=== PATIENT | male | born 1980 | race Caucasian/White ===

== ENCOUNTER 2022-03-07 14:42 | Emergency (ER) | payer OTHER, SELFPAY ==
[2022-03-07 14:54] VITALS: BP 141/84; PULSE 93; RESP 16; TEMP 36.6; O2SAT 99
--- NOTE | 2022-03-07 15:02 | ED.GENADULT ---
HPI - General Adult General Chief complaint: Ear Stated complaint: Right eye and head pain Time Seen by Provider: 03/07/22 15:02 Source: patient Mode of arrival: ambulatory Limitations: no limitations History of Present Illness HPI narrative: 42 y/o male presented for c/o right facial pain since last night. Pain to right maxillary sinus, right ear and mandaeism. Endorses sinus congestion and pressure for over one week, but pain worsened last night. Taking tylenol and scheduled meloxicam without relief. Also tried ear pain relief drops. Denies dental issues. Denies tinnitus, dizziness, nausea, vomiting, fever/chills. NKDA. Related Data Home Medications Medication Instructions Recorded Confirmed amitriptyline 25 mg PO DIRECTED 03/07/22 03/07/22 atorvastatin 40 mg PO DIRECTED 03/07/22 03/07/22 cholecalciferol (vitamin D3) 1,250 mcg PO DAILY 03/07/22 03/07/22 empagliflozin [Jardiance] 25 mg PO DAILY 03/07/22 03/07/22 fenofibrate 160 mg PO DAILY 03/07/22 03/07/22 glipizide 10 mg PO DAILY 03/07/22 03/07/22 linagliptin [Tradjenta] 5 mg PO DIRECTED 03/07/22 03/07/22 lisinopril 20 mg PO DAILY 03/07/22 03/07/22 meloxicam 15 mg PO DIRECTED 03/07/22 03/07/22 semaglutide [Ozempic] 0.25 mg SUBCUT DIRECTED 03/07/22 03/07/22 Allergies Allergy/AdvReac Type Severity Reaction Status Date / Time No Known Allergies Allergy Verified 03/07/22 15:06 Review of Systems Review of Systems: CONSTITUTIONAL: Denies body aches, fever, chills ENT: reports rhinorrhea, congestion, sinus pain CARDIOVASCULAR: Denies chest pain, palpitations RESPIRATORY: Denies cough or dyspnea. SKIN: Denies rash, itching, or wounds. MUSCULOSKELETAL: Denies myalgia. NEUROLOGIC: Denies headache, numbness, tingling, or weakness. PMFSH Comments At time of signature, I have reviewed and agree with nursing past medical, surgical, social and family history unless otherwise noted. Please see nursing chart for further information. There is no relevant family history pertinent to the presenting complaint Exam Narrative: GENERAL: Appears in pain; no acute distress. HEAD: Normocephalic, atraumatic. No facial swelling EYES: EOMI. No redness or drainage. Conjunctivae normal. ENT: Right maxillary sinus tender with light palpation, no facial edema or erythema; Mucous membranes pink and moist. Left TM normal; right canal and TM erythematous with mild swelling, no purulence. Throat normal. Uvula midline. no gum swelling or dental caries noted on exam NECK: Normal AROM. Supple. No lymphadenopathy. CHEST: No respiratory distress. Clear to auscultation. HEART: Regular rate and rhythm. No murmur appreciated. ABDOMEN: Soft, nontender, nondistended, normal active bowel sounds. SKIN: Warm, dry, no rash. Normal skin turgor. NEURO: No focal deficits. Alert and oriented x3. Gait steady. Course Course Emergency Course: Patient is aware of diagnosis, understands and agrees to treatment plan. Anticipatory guidance given. Patient agrees to follow-up as directed and is aware of reasons to seek care at the emergency department. Portions of this record may have been created with voice recognition software Level of Care: Express Care Visit Vital Signs Vital signs: Vital Signs Temperature 97.9 F 03/07/22 14:54 Pulse Rate 93 03/07/22 14:54 Respiratory Rate 16 03/07/22 14:54 Blood Pressure 141/84 H 03/07/22 14:54 Pulse Oximetry 99 03/07/22 14:54 Temperature 97.9 F 03/07/22 14:54 Pulse Rate 93 03/07/22 14:54 Respiratory Rate 16 03/07/22 14:54 Blood Pressure 141/84 H 03/07/22 14:54 Pulse Oximetry 99 03/07/22 14:54 Medical Decision Making [facility] Narrative Medical decision making narrative: There are no focal signs of space occupying lesions that are compromising to the airway; no dysphagia, odynophagia, dysphonia, or dyspnea. No uvular deviation or soft palate edema. Patient is non-toxic appearing. The floor of the mouth is soft with no
== END 2022-03-07 15:16 | disposition home or self-care (01) ==
PROVIDERS: Emergency Provider Nurse Practitioner Family
DX: R51.9 Headache, unspecified (principal); I10 Essential (primary) hypertension; M19.90 Unspecified osteoarthritis, unspecified site; E11.9 Type 2 diabetes mellitus without complications
CPT/HCPCS: 99203; G0463

== ENCOUNTER 2022-08-31 12:50 | Emergency (ER) | payer OTHER, SELFPAY ==
[2022-08-31 13:03] VITALS: BP 125/78; PULSE 93; RESP 16; TEMP 36.4; O2SAT 99
--- NOTE | 2022-08-31 13:03 | ED.URI ---
HPI - URI/Sore Throat General Chief Complaint: Upper Respiratory Infection Stated Complaint: sore throat, runny nose, headache Time Seen by Provider: 08/31/22 13:03 Source: patient and RN notes reviewed Mode of arrival: ambulatory Limitations: no limitations History of Present Illness HPI Narrative: 42-year-old male presents to the [facility] with complaints of runny nose, frontal headache, sore throat since Saturday, 2 days. Denies fevers, cough, chest pain or abdominal pain. Has taken Mucinex for some Daughter has had the same symptoms. No treatment prior to arrival. Related Data Home Medications Medication Instructions Recorded Confirmed amitriptyline 25 mg tablet 25 mg PO DIRECTED 03/07/22 08/31/22 atorvastatin 40 mg tablet 40 mg PO DIRECTED 03/07/22 08/31/22 cholecalciferol (vitamin D3) 1,250 1,250 mcg PO DAILY 03/07/22 08/31/22 mcg (50,000 unit) capsule empagliflozin 25 mg tablet 25 mg PO DAILY 03/07/22 08/31/22 (Jardiance) fenofibrate 160 mg tablet 160 mg PO DAILY 03/07/22 08/31/22 glipizide 10 mg tablet 10 mg PO DAILY 03/07/22 08/31/22 linagliptin 5 mg tablet (Tradjenta) 5 mg PO DIRECTED 03/07/22 08/31/22 lisinopril 20 mg tablet 20 mg PO DAILY 03/07/22 08/31/22 meloxicam 15 mg tablet 15 mg PO DIRECTED 03/07/22 08/31/22 semaglutide 0.25 mg or 0.5 mg (2 0.25 mg subcut DIRECTED 03/07/22 08/31/22 mg/1.5 mL) subcutaneous pen injector (Ozempic) gabapentin 100 mg capsule 100 mg PO DIRECTED 08/31/22 08/31/22 Allergies Allergy/AdvReac Type Severity Reaction Status Date / Time No Known Allergies Allergy Verified 08/31/22 13:02 Review of Systems Review of Systems: All systems reviewed & are unremarkable except as noted in HPI and below Constitutional: Constitutional: Reports no additional constitutional complaints, Denies chills and Denies fever(s) Eyes: Eyes: Reports no additional eye complaints ENT: Reports as per HPI Cardiovascular: Cardiovascular: Reports no additional cardiovascular complaints Respiratory: Respiratory: Reports no additional respiratory complaints Gastrointestinal: Gastrointestinal: Reports no additional gastrointestinal complaints Musculoskeletal: Musculoskeletal: Reports no additional musculoskeletal complaints Integumentary/Breasts: Skin/Breast: Reports system reviewed and no additional complaints, except as docu Neurologic: Reports system reviewed and no additional complaints, except as documented Psychiatric: Psychiatric: Reports no additional psychiatric complaints Allergic/Immunologic: Allergic/Immunologic: Reports no additional allergic/immunologic complaints PMFSH Past Medical History Medical History (Updated 09/03/22 @ 08:05 by Vee Gaffney APRN) Diabetes High cholesterol History of high blood pressure Social History Social History (Updated 09/03/22 @ 08:04 by Vee Gaffney APRN) Living arrangements: with family Gender identity (if verbalized by the patient): Male Comments At the time of my signature, I reviewed and agree with the nursing past medical, surgical, social, and family history. There is no relevant family history pertinent to the patient complaint. Exam Const: General: healthy appearing, no acute distress, alert and well nourished Nutritional Appearance: well nourished and obese Orientation/consciousness: patient oriented x3 Limitations: no limitations HENMT: Head: normal to inspection Ears: external ears normal, TM's normal bilaterally and EAC's normal Throat: posterior oropharynx normal and uvula midline Eyes: General: appearance normal, both eyes and all related structures Pupils: Equal, round and reactive pupils present Neck: Neck: normal visual inspection, no lymphadenopathy and no meningeal signs Chest: Chest palpation & inspection: normal inspection of the chest Resp: Effort & Inspection: normal respiratory effort and no use of accessory muscles Auscultation: clear to auscultation bilaterally, no
[2022-08-31 13:04] VITALS: BP 125/78; PULSE 93; RESP 16; TEMP 36.4; O2SAT 99
== END 2022-08-31 13:44 | disposition home or self-care (01) ==
PROVIDERS: Emergency Provider Nurse Practitioner
DX: J06.9 Acute upper respiratory infection, unspecified (principal); E11.9 Type 2 diabetes mellitus without complications; E78.00 Pure hypercholesterolemia, unspecified; I10 Essential (primary) hypertension
CPT/HCPCS: 99213; G0463